=== PATIENT | female | born 1975 | race Caucasian/White ===

== ENCOUNTER 2017-05-23 07:03 | Emergency (ER) | payer BC, OTHER ==
[~2017-05-23] VITALS: Ht 157.5 cm; Wt 74.2 kg
[~2017-05-23 07:03] MED LIST: IBUP-103 PO; LEVO112T2 PO; LISI-461 PO
[2017-05-23 07:08] VITALS: TEMP 36.3; Ht 157.5 cm; Wt 74.2 kg
--- NOTE | 2017-05-23 07:24 | EMERGENCY ROOM VISIT NOTE ---
ED Visit Note First contact with patient: 07:13 CHIEF COMPLAINT: Finger laceration HISTORY OF PRESENT ILLNESS: This 41-year-old female patient presents to the emergency department ambulatory after cutting the right finger on a glass that was broken in the sink last night around 6:30 PM. The bleeding has stopped. Denies weakness or numbness of the finger. The patient denies any pain. The patient denies any other injuries. The patient's Tetanus shot is up to date. REVIEW OF SYSTEMS: A 6 system review of systems was completed with positives and pertinent negatives listed in the HPI. ALLERGIES: No known drug allergies MEDICATIONS: See nursing notes PMH: Hypertension, hypothyroid SOCIAL HISTORY: The patient lives locally with family PHYSICAL EXAM: Vital Signs: Reviewed Nurse's notes, vital signs stable. GENERAL : This is a 41-year-old female, in no acute distress, well-developed, well- nourished. SKIN: There is a 1 cm long flap-like laceration on the palmar aspect of the finger. The edges gape apart with traction. There is no foreign material in the wound and it looks clean. There is minimal bleeding. No deep structures such as tendons, bones, or nerves are seen in the base of the wound. Normal strength and movement of the finger. Capillary refill less than 2 seconds. Normal sensation to light and sharp touch. EMERGENCY DEPARTMENT COURSE: I examined the patient. Using sterile technique the wound was cleaned with Betadine. The area was sterilely draped. 2 ml of 1% buffered lidocaine was used to anesthetize the laceration on the finger. Once the patient was numb, the wound was copiously irrigated under pressure with sterile saline. The wound was explored and found to be a very superficial skin flap. The laceration was repaired using 3 simple interrupted 5-0 nylon sutures with the wound edges being well approximated. The patient tolerated the procedure well. The bleeding stopped. The area was cleaned with sterile saline and dressed with bacitracin ointment and bandage. The laceration occurred over 12 hours ago. I discussed the risks, benefits and alternatives of performing a delayed primary closure. The patient is in agreement to proceed with delayed primary closure. She was advised that this is at increased risk for infection. Finger The patient was discharged home in good condition. DISCHARGE INSTRUCTIONS & TREATMENT: Keep wound clean and dry. Do not allow any crusting or dried blood to accumulate on sutures. If this occurs, use a 1:1 solution of hydrogen peroxide/water on a Q-tip to clean the wound. Use an antibiotic ointment for 3-4 days, then let wound dry. Suture removal in 7-10 days. Return sooner for any signs of infection (increasing redness, swelling, drainage). Ice and elevate for swelling and pain. Ibuprofen 600 mg every 6 hrs for pain. Keep covered when in sun until sutures removed then SPF 50 or higher for one year. Vitamin E oil if desired two weeks after suture removal for reduction of scar. start the keflex with any redness, swelling, warmth, drainage of pus Problem List Medical Problems: (1) Hypertension Status: Chronic (2) Kidney stone Status: Chronic Surgical Problems: (1) History of section Status: Resolved Current/Historical Medications Scheduled Cephalexin Monohydrate (Keflex), 500 MG PO TID Ibuprofen Tab (Advil), 200 MG PO DIRECTED Levothyroxine Sodium (Synthroid), 112 MCG PO DAILY Lisinopril (Zestril), 10 MG PO DAILY Prednisone Tab (Prednisone), 10 MG PO UD Allergies Coded Allergies: No Known Allergies (Verified , 05/23/17) Vital Signs Date Time Temp Pulse Resp B/P (MAP) Pulse Ox O2 Delivery O2 Flow Rate FiO2 05/23/17 08:11 72 20 135/97 96 Room Air 05/23/17 07:08 36.3 18 18 124/86 99 Room Air Departure Information Impression Primary Impression: Laceration of finger Dispostion Home / Self-Care Condition GOOD Prescriptions Cephalexin Monohydrate (Keflex) 500 Mg Cap 500 MG PO TID for 7 Days, #21 CAP Prov: Nahomi Terry PA-C 05/23/17 Referrals David Quintanilla III, M.D. (PCP) Patient Instructions ED Laceration All, [facility] Additional Instructions Keep wound clean and dry. Do not allow any crusting or dried blood to accumulate on sutures. If this occurs, use a 1:1 solution of hydrogen peroxide/ water on a Q-tip to clean the wound. Use an antibiotic ointment for 3-4 days, then let wound dry. Suture removal in 7-10 days. Return sooner for any signs of infection (increasing redness, swelling, drainage). Ice and elevate for swelling and pain. Ibuprofen 600 mg every 6 hrs for pain. Keep covered when in sun until sutures removed then SPF 50 or higher for one year. Vitamin E oil if desired two weeks after suture removal for reduction of scar. start the keflex with any redness, swelling, warmth, drainage of pus
[2017-05-23] MEDS ORDERED: PRED10TA PO (07:30)
[2017-05-23] MEDS ORDERED: XYLOCAINE 1%/SOD BICARB 20 ML VIAL INFIL ONE (07:30)
[2017-05-23] MEDS ORDERED: CEPH500C PO (07:49)
[2017-05-23 08:11] VITALS: BP 135/97; PULSE 72; O2SAT 96
== END 2017-05-23 08:13 | disposition home or self-care (01) ==
LOC: C.EDB 07:04 → C.EDA 08:13
DX: S61.212A Laceration without foreign body of right middle finger without damage to nail, initial encounter (principal); W25.XXXA Contact with sharp glass, initial encounter; I10 Essential (primary) hypertension; E03.9 Hypothyroidism, unspecified; Z87.442 Personal history of urinary calculi; Z79.899 Other long term (current) drug therapy